=== PATIENT | male | born 1995 | race Caucasian/White ===

== ENCOUNTER 2017-06-28 21:46 | Emergency (ER) | payer OTHER ==
[~2017-06-28] VITALS: Ht 172.7 cm; Wt 67.4 kg
[2017-06-28 21:54] VITALS: TEMP 36.6; Ht 172.7 cm; Wt 67.4 kg
--- NOTE | 2017-06-28 22:36 | EMERGENCY ROOM VISIT NOTE ---
History First contact with patient: 22:13 Chief Complaint: ALCOHOL OVERDOSE Stated Complaint: ETOH Nursing Triage Summary: Pt arrives BLS. Pt was [place] the [place], sitting at a picnic table passed out. Pt continued in and out of consciouness. Pt remains the same here. Pt reported to EMS that he has no medical conditions, no allergries, no meds. Pt has vomited several times. History of Present Illness The patient is a 21 year old male who presents to the Emergency Room via EMS with concern for alcohol intoxication. [place] table passed out. He has been in and out of consciousness but has been speaking to EMS en route. He has also vomited several times. Review of Systems ROS Limited due to patient's alcohol intoxication. Social History Smoking Status: Unknown if Ever Smoked Current/Historical Medications Unable to Obtain Active Prescriptions or Reported Meds Physical Exam Vital Signs Date Time Temp Pulse Resp B/P (MAP) Pulse Ox O2 Delivery O2 Flow Rate FiO2 06/29/17 03:00 66 132/78 94 Room Air 06/29/17 02:30 65 95 Room Air 06/29/17 02:09 70 06/29/17 02:00 72 18 94 Room Air 06/29/17 01:30 87 26 96 Room Air 06/29/17 01:00 74 18 96 Room Air 06/29/17 00:30 76 20 92 Room Air 06/29/17 00:00 73 19 93 Room Air 06/28/17 23:34 Room Air 06/28/17 23:30 64 20 98 Room Air 06/28/17 23:00 61 20 99 Room Air 06/28/17 22:07 62 06/28/17 22:01 Room Air 06/28/17 21:54 36.6 57 15 99/61 93 Room Air Physical Exam VITALS - Vitals are noted on the nurse's note and reviewed by myself. Vital signs stable. GENERAL - Pleasant and cooperative, in no acute distress, non-diaphoretic, well- developed well-nourished. The patient is drowsy and visibly intoxicated. SKIN - The skin was without obvious lacerations, abrasions, or rashes. There is no tenting of the skin. Capillary reflex less than 2 seconds. HEENT - Normocephalic, atraumatic. PERRLA. EOMI. Conjunctiva with mild injection without icterus. Tympanic membranes without erythema or effusion bilaterally no hemotympanum. External auditory canals are clear. Nares patent bilaterally. No epistaxis. Oropharynx without erythema or exudate. Uvula midline. Oral mucosal moist. No lymphadenopathy. Neck is supple without cervical spine tenderness. HEART - Regular rate and rhythm without murmurs gallops or rubs. Peripheral pulses 2+. LUNGS - Clear to auscultation bilaterally without wheezes, rales or rhonchi. ABDOMEN - Positive bowel sounds x 4. Normal tympanic percussion. Soft, nontender, without masses or organomegaly. MUSCULOSKELETAL - Gross motor function of the upper and lower extremities intact. NEUROLOGIC - The patient is visibly intoxicated. Medical Decision & Procedures Laboratory Results 06/28/17 22:45 Test 06/28/17 22:45 Anion Gap 12.0 mmol/L (3-11) Est Creatinine Clear Calc Drug Dose 103.0 ml/min Estimated GFR () 112.2 Estimated GFR (Non- 96.8 BUN/Creatinine Ratio 12.9 (10-20) Calcium Level 8.9 mg/dl (8.5-10.1) Ethyl Alcohol mg/dL 226.0 mg/dl (0-3) ED Course Patient was seen and evaluated by myself. Aspiration precautions were instituted and the patient was placed in the prone position. The patient was placed on the monitoring tech and pulse oximetry was monitored throughout the entire stay in the emergency department. Labs were collected. Patient's medical alcohol was found to be elevated at 226 mg/dL. Patient was monitored in the emergency department for greater than 6 hours. The patient eventually was awoken and educated on today's visit. They were encouraged to refrain from heavy drinking. All labs and diagnostics were reviewed. Patient was discharged home in stable condition. Medical Decision In the evaluation and treatment of this patient, the following differential diagnoses were considered: Hypoglycemia, Barbiturate Toxicity, Benzodiazepine Toxicity, Depression and Suicidality, Diabetic Ketoacidosis, Encephalitis, Ethylene Glycol Toxicity, Meningitis, Metabolic Acidosis, Opioid Toxicity, CVA, TIA, Intracranial Abnormality, Acute Psychosis, Amongst Others. Given the patient's presentation and exam findings, I did elect to perform the above-mentioned workup. The patient presents today visibly intoxicated. The patient was monitored constantly throughout entire stay in the emergency setting. Medical alcohol level was elevated significantly at 226 mg/dL. After a lengthy stay in the Emergency Department the patient was deemed appropriate for discharge, with a sober friend taking responsibility for him. Patient was discharged home at 0415 with his sober friend. Impression Primary Impression: Alcoholic intoxication Departure Information Dispostion Home / Self-Care Condition GOOD Prescriptions Unable to Obtain Active Prescriptions or Reported Meds Referrals No Doctor, Assigned (PCP) Patient Instructions ED Alcohol Intoxication, [facility] Additional Instructions Do not drink any further alcohol today and avoid such excessive drinking in the future. Drink plenty of fluids today to stay hydrated. Follow-up with your PCP as needed. Problem Qualifiers Primary Impression: Alcoholic intoxication Complication of substance-induced condition: uncomplicated Qualified Codes: F10.920 - Alcohol use, unspecified with intoxication, uncomplicated
[2017-06-28 23:21] LABS: CREATININE 1.1 mg/dl (0.60-1.40)
[2017-06-28 23:22] LABS: BUN/CREATININE RATIO 12.9 (10-20); CALCIUM 8.9 mg/dl (8.5-10.1); POTASSIUM 3.3 mmol/L (3.5-5.1)
[2017-06-29 03:00] VITALS: BP 132/78; PULSE 66; O2SAT 94
== END 2017-06-29 04:16 | disposition home or self-care (01) ==
LOC: C.EDA 21:47 → EDBD 21:47 → C.EDA 06-29 04:16
DX: F10.920 Alcohol use, unspecified with intoxication, uncomplicated (principal)